=== PATIENT | male | born 1960 | race Caucasian/White ===

== ENCOUNTER 2023-03-05 15:19 | Emergency (ER) | payer MEDICARE, SELFPAY ==
--- NOTE | 2023-03-05 15:32 | ED.EAR ---
HPI - Ear Problem General Chief complaint: Ear Stated complaint: Ear Problem/Right Time Seen by Provider: 03/05/23 15:59 Source: patient and RN notes reviewed Mode of arrival: ambulatory Limitations: no limitations History of Present Illness HPI Narrative: 62-year-old male presents with concern for wax buildup in the right ear. Reports he used [id number] drops and tried to flush it last night without success. He reports he has pain in the ear when he lies on it. MD Complaint: ear pain Related Data Home Medications Medication Instructions Recorded Confirmed carvedilol 6.25 mg tablet mg 03/05/23 clopidogrel 75 mg tablet mg 03/05/23 lansoprazole 30 mg capsule,delayed mg 03/05/23 release potassium chloride 20 mEq meq PO 03/05/23 tablet,extended release(part/cryst) (Klor-Con M) rosuvastatin 40 mg tablet mg 03/05/23 sacubitril 24 mg-valsartan 26 mg tablet 03/05/23 tablet (Entresto) semaglutide 1 mg/dose (4 mg/3 mL) mg subcut 03/05/23 subcutaneous pen injector (Ozempic) sildenafil 100 mg tablet mg 03/05/23 thyroid (pork) 120 mg tablet mg 03/05/23 ([place] Thyroid) Allergies Allergy/AdvReac Type Severity Reaction Status Date / Time lidocaine Allergy Unknown Verified 03/05/23 15:41 Review of Systems Review of Systems: CONSTITUTIONAL: Denies malaise, chills, sweats, or fever. EYES: Denies visual changes, redness, or discharge. ENT: Denies rhinorrhea, congestion, sinus pain, and sore throat. Reports right ear fullness and pain when lying on CARDIOVASCULAR: Denies chest pain, palpitations, or edema. RESPIRATORY: Denies cough. Denies dyspnea. GASTROINTESTINAL: Denies abdominal pain, nausea, vomiting, diarrhea SKIN: Denies rash or itching. MUSCULOSKELETAL: Denies myalgia. NEUROLOGIC: Denies headache. All systems reviewed & are unremarkable except as noted in HPI and below PMFSH Comments At time of signature, agree with nursing past medical, surgical, social and family history. There is no relevant family history pertinent to the presenting complaint Exam Narrative: GENERAL: Well-appearing, well-nourished, and in no acute distress. HEAD: Normocephalic EYES: PERRLA, conjunctivae clear ENT: Nares clear. Mucous membranes moist. TM not visible to excess cerumen; no tragal tenderness. NECK: Supple. No lymphadenopathy CHEST: No respiratory distress, speaks in full sentences. HEART: Regular rate and rhythm. No murmur heard. SKIN: Warm, dry, no rash. NEURO: Alert and oriented x3. PSYCH: Normal mood and affect Course Course Emergency Course: Patient is aware of diagnosis, understands and agrees to treatment plan. Anticipatory guidance given. Patient agrees to follow-up as directed and is aware of reasons to seek care at the emergency department. Portions of this record may have been created with voice recognition software Level of Care: Express Care Visit Vital Signs Vital signs: Reviewed. Procedures Ear Wax Removal Right Ear: Ear Wax Removal Date: 03/05/23 Ear Wax Removal Time: 16:08 Cerumenolytic Used: other (Hydrogen peroxide) Results: Re-examined: removal reattempted Complications: pain Technique: ear canal irrigated and ear canal curetted Additional Comments: Patient was having pain with flushing and curetting. Procedure stopped. Medical Decision Making MDM Narrative Medical decision making narrative: Differential diagnosis considered: [place] virus, strep pharyngitis, allergic rhinitis, upper respiratory tract infection, sinusitis, rhinosinusitis, nasopharyngitis. viral pharyngitis, otitis media, otitis externa, otitis effusion, cerumen impaction, foreign body. Exam findings show no acute concerns or changes; patient is non-toxic appearing and is in no distress. Patient is appropriate for outpatient treatment and follow-up. Critical Care Time Critical Care Time Critical Care Time: No Discharge Plan Discharge Clinical
[2023-03-05 15:42] VITALS: BP 155/72; PULSE 80; RESP 16; TEMP 36.6; O2SAT 96
== END 2023-03-05 16:51 | disposition home or self-care (01) ==
PROVIDERS: Emergency Provider Nurse Practitioner
DX: H61.21 Impacted cerumen, right ear (principal); H60.90 Unspecified otitis externa, unspecified ear; Z79.899 Other long term (current) drug therapy
CPT/HCPCS: 69210; 99213; G0463